=== PATIENT | female | born 1985 | race Caucasian/White ===

== ENCOUNTER 2018-12-29 11:20 | Emergency (ER) | payer BC ==
[2018-12-29 11:33] VITALS: TEMP 98
--- NOTE | 2018-12-29 11:58 | ED.PDOC ---
History of Present Illness - General Chief Complaint: Headache Stated Complaint: migraine, nausea Time Seen by Provider: 12/29/18 11:37 Source: patient, family Exam Limitations: no limitations - History of Present Illness Initial Comments: Patient presents with a migraine for two weeks. It started left parietal but has moved to the middle of her head and behind the left eye. Throbbing in nature. Associated with nausea. Worse with activity, better with rest. No photophobia. She has had these in the past and was taking Topamax but she stopped that before she got last time. She tapered off of her sertraline three weeks ago but started taking half the usual dose again after the migraine started. She has tried Toradol 10 mg tablets and nasal sumatryptan. These had no affect on her headache. She just finished her menstrual cycle. No other complaints. Timing/Duration: other - 2-3 weeks Severity: moderate Improving Factors: nothing Worsening Factors: nothing Associated Symptoms: other - as in HPI Allergies/Adverse Reactions: Allergies Penicillins Allergy (Verified 12/29/18 12:35) Home Medications: Ambulatory Orders Sertraline HCl [Zoloft] 50 mg PO DAILY 12/29/18 Sumatriptan Succinate 25 mg PO ONCE PRN #6 tab 12/29/18 Review of Systems - Review of Systems Constitutional: States: no symptoms reported EENTM: States: no symptoms reported Respiratory: States: no symptoms reported Cardiology: States: no symptoms reported Gastrointestinal/Abdominal: States: no symptoms reported Genitourinary: States: no symptoms reported Musculoskeletal: States: no symptoms reported Skin: States: no symptoms reported Neurological: States: see HPI Endocrine: States: no symptoms reported Hematologic/Lymphatic: States: no symptoms reported Past Medical History (General) - Patient Medical History Hx Seizures: No Hx Stroke: No Hx Dementia: No Hx Asthma: No Hx of COPD: No Hx Cardiac Disorders: No Hx Pacemaker: No Hx Hypertension: No Hx Thyroid Disease: No Hx Diabetes: No Hx Gastroesophageal Reflux: No Hx Renal Disease: No Hx Cancer: No Hx of HIV: No - Vaccination History Hx Tetanus, Diphtheria Vaccination: No Hx Influenza Vaccination: Yes Immunizations Up to Date: Yes - Social History Hx Tobacco Use: No Hx Alcohol Use: No Hx Substance Use: No - Female History Patient is a Female of Child Bearing Age (10 -59 yrs old): Yes Family Medical History - Family History Mother Family History: Unknown Physical Exam - Physical Exam General Appearance: Alert Eye Exam: bilateral normal Ears, Nose, Throat: normal ENT inspection Neck: non-tender, full range of motion, supple Respiratory: lungs clear, normal breath sounds Cardiovascular/Chest: normal peripheral pulses, regular rate, rhythm, no edema Gastrointestinal/Abdominal: normal bowel sounds, non tender, soft Back Exam: normal inspection, no CVA tenderness Extremity: normal range of motion, non-tender, normal inspection Neurologic: emissions technician II-XII nml as tested, no motor/sensory deficits, alert, normal mood/affect, oriented x 3 Skin Exam: normal color Lymphatic: no adenopathy Progress - Progress Progress: 12/29/18 17:15 Laboratory Tests 12/29/18 12/29/18 12/29/18 11:53 12:00 13:50 WBC 4.9 RBC 3.86 L Hgb 11.2 L Hct 33.4 L MCV 86.4 MCH 28.9 MCHC 33.5 RDW 15.3 H Plt Count 170 MPV 9.0 Absolute Neuts (auto) 3.10 Absolute Lymphs (auto) 1.20 Absolute Monos (auto) 0.40 Absolute Eos (auto) 0.10 Absolute Basos (auto) 0.00 Neutrophils % 64.4 Lymphocytes % 24.0 Monocytes % 8.6 Eosinophils % 2.1 Basophils % 0.9 PT INR PTT (SP) Sodium Potassium Chloride Carbon Dioxide Anion Gap BUN Creatinine BUN/Creatinine Ratio Random Glucose Serum Osmolality Calcium Phosphorus Magnesium Total Bilirubin AST ALT Alkaline Phosphatase Serum Total Protein Albumin Globulin Albumin/Globulin Ratio TSH Thyroxine (T4) Urine Color Yellow Urine Appearance Clear Urine pH 5.5 Ur Specific Merrill 1.025 Urine Protein Negative Urine Glucose (UA) Negative Urine Ketones Negative Urine Blood Negative Urine Nitrite Negative Urine Bilirubin Negative Urine Urobilinogen 0.2 Ur Leukocyte Esterase Negative Urine RBC 0 Urine WBC 0-1 Ur Epithelial Cells 10-20 Urine Bacteria Rare Urine HCG, Qual Negative 12/29/18 12/29/18 12/29/18 13:50 13:50 13:50 WBC RBC Hgb Hct MCV MCH MCHC RDW Plt Count MPV Absolute Neuts (auto) Absolute Lymphs (auto) Absolute Monos (auto) Absolute Eos (auto) Absolute Basos (auto) Neutrophils % Lymphocytes % Monocytes % Eosinophils % Basophils % PT 10.4 INR 1.04 PTT (SP) 23.6 Sodium 139 Potassium 4.0 Chloride 107 Carbon Dioxide 23 Anion Gap 13.0 BUN 22 H Creatinine 0.88 BUN/Creatinine Ratio 25.0 H Random Glucose 93 Serum Osmolality 280.6 Calcium 9.2 Phosphorus 3.7 Magnesium 1.9 Total Bilirubin 0.2 AST 20 ALT 18 Alkaline Phosphatase 35 L Serum Total Protein 6.8 Albumin 4.2 Globulin 2.6 Albumin/Globulin Ratio 1.6 TSH 0.89 Thyroxine (T4) 6.66 Urine Color Urine Appearance Urine pH Ur Specific Merrill Urine Protein Urine Glucose (UA) Urine Ketones Urine Blood Urine Nitrite Urine Bilirubin Urine Urobilinogen Ur Leukocyte Esterase Urine RBC Urine WBC Ur Epithelial Cells Urine Bacteria Urine HCG, Qual Labs wnl. CT head w/wo contrast normal. Toradol/phenergan/fioricet did not help with the headache. Sumaptryptan did not help. ASA 1000 mg and metoclopramide 10 mg po brought the headache down to a "tolerable" level. Patient was given dexamethosone 10 mg IV in the E.D. for prophylaxis. RX for sumatryptan given.Care instructions given. E.R. warnings given. Questions were elicited and answered. Patient voiced understanding and agreement with the plan. Departure - Departure Clinical Impression: Migraine Disposition: Discharge to Home or Self Care Condition: Good Departure Forms: ED Discharge - Pt. Copy, Patient Portal Self Enrollment Instructions: DI for Headache Diet: resume usual diet Activity: increase activity as tolerated Referrals: Sony Wilson MD [Primary Care Provider] - 1-2 Weeks Prescriptions: Sumatriptan Succinate 25 mg PO ONCE PRN #6 tab PRN Reason: Headache/Migraine Pain Home Medications: Ambulatory Orders Sertraline HCl [Zoloft] 50 mg PO DAILY 12/29/18 Sumatriptan Succinate 25 mg PO ONCE PRN #6 tab 12/29/18 Additional Instructions: Take sumatriptan up to twice per day for headache relief. You may take it with Naproxen 500 mg by mouth once. Do not take if you believe you might be .
[2018-12-29] MEDS ORDERED: ACETAMINOPHEN-CAFF-BUTALBITAL 1 EA TAB PO PRN (12:27)
[2018-12-29] MEDS ORDERED: KETOROLAC TROMETHAMINE INJ 30 MG/ML VIAL IM ONE (12:28)
[2018-12-29] MEDS ORDERED: PROMETHAZINE HCL 25 MG TAB PO ONE (12:28)
[2018-12-29] MEDS ORDERED: SUMAtriptan SUCCINATE INJ 6 MG/0.5 ML VIAL SUBCU ONE (13:27)
[2018-12-29] MEDS ORDERED: ASPIRIN TABLET 325 MG TAB PO ONE (15:21)
[2018-12-29] MEDS ORDERED: METOCLOPRAMIDE HCL 5 MG TAB PO ONE (15:22)
--- NOTE | 2018-12-29 16:26 | CT ---
EXAM DESCRIPTION: Head w/wo Contrast CLINICAL HISTORY: headache COMPARISON: None Available. TECHNIQUE: Contiguous axial images of the brain were obtained before and after the administration of intravenous contrast. This exam was performed according to our departmental dose-optimization program, which includes automated exposure control, adjustment of the mA and/or kV according to patient size and/or use of iterative reconstruction technique. FINDINGS: There is no acute intracranial hemorrhage or mass effect. Ventricular system is within normal limits. There is adequate galicia-white matter differentiation. There is no skull fracture. The visualized paranasal sinuses and mastoid air cells are within normal limits. After the administration of intravenous contrast, there is normal enhancement of the brain. IMPRESSION: No acute intracranial abnormalities. Electronically signed by: Joon Qureshi MD 12/29/2018 4:24 PM CDT
[2018-12-29] MEDS ORDERED: DEXAMETHASONE INJ 10 MG/ML VIAL IV ONE (17:14)
[2018-12-29 17:35] VITALS: O2SAT 99
[2018-12-29 17:46] VITALS: BP 120/60
== END 2018-12-29 17:46 | disposition home or self-care (01) ==
LOC: ER 11:20
DX: G43.909 Migraine, unspecified, not intractable, without status migrainosus (principal); Z88.0 Allergy status to penicillin
CPT/HCPCS: 36415; 70470; 80053; 81001; 81025; 83735; 84100; 84436; 84443; 85025; 85610; 85730; J1100; J1885; J3030; Q0169

== ENCOUNTER 2018-12-31 14:58 | Outpatient (CLI) | payer BC ==
[2018-12-31] MEDS ORDERED: MAGNESIUM SULFATE PREMIX 2GM 2 GM in PREMIX BAG 1 BAG IVPB ONE (15:10)
[2018-12-31] MEDS ORDERED: SODIUM CHLORIDE 0.9% IVPB ONE (15:10)
[2018-12-31] MEDS ORDERED: METHYLPREDNISOLONE IVPB ONE (15:10)
[2018-12-31] MEDS ORDERED: DIHYDROERGOTAMINE MESYLATE 1 MG/ML VIAL IM ONE (15:11)
[2018-12-31] MEDS ORDERED: METOCLOPRAMIDE HCL INJ 10 MG/2 ML VIAL IV ONE (15:11)
[2018-12-31 15:20] VITALS: BP 110/74; TEMP 97.7; O2SAT 99
== END 2018-12-31 17:15 | disposition home or self-care (01) ==
LOC: INFRM 14:58
PROVIDERS: ATTEND Family Medicine
DX: G43.909 Migraine, unspecified, not intractable, without status migrainosus (principal)
CPT/HCPCS: 96365; 96368; 96372; 96375; J1110; J2765; J3475; J7050